=== PATIENT | male | born 1935 | race Caucasian/White ===

== ENCOUNTER 2016-11-16 17:02 | Inpatient (IN) | payer OTHER ==
[~2016-11-16] VITALS: Ht 170.2 cm; Wt 84.8 kg
[2016-11-16] MEDS ORDERED: ACETAMINOPHEN 325 MG TABLET PO PRN (18:00)
[2016-11-16] MEDS ORDERED: PROMETHAZINE 25 MG/ML, 1ML IM PRN (18:00)
[2016-11-16] MEDS ORDERED: PLEASE ENTER HEIGHT AND WEIGHT MC SCH (18:30)
[2016-11-16] MEDS ORDERED: CARV3.12 PO (19:43)
[2016-11-16] MEDS ORDERED: ISOS30TA8 PO (19:43)
[2016-11-16] MEDS ORDERED: PRAZ1CAP2 PO (19:43)
[2016-11-16] MEDS ORDERED: PANT40TA5 PO (19:43)
[2016-11-16] MEDS ORDERED: AMLO2.5T PO (19:43)
[2016-11-16] MEDS ORDERED: NITR0.3T5 SL (19:43)
[2016-11-16] MEDS ORDERED: LISI-170 PO (19:43)
[2016-11-16] MEDS ORDERED: ASPI-496 PO (19:43)
[2016-11-16] MEDS ORDERED: ATOR40TA78 PO (19:43)
[2016-11-16] MEDS ORDERED: CARVEDILOL 3.125 MG TABLET PO PRN (20:30)
[2016-11-16] MEDS ORDERED: PRAZOSIN 1 MG CAPSULE PO PRN (20:30)
[2016-11-16] MEDS: FAMOTIDINE 20 MG/2 ML IVPush SCH (21:07)
[2016-11-16] MEDS: ATORVASTATIN 40 MG TABLET PO SCH (21:07)
[2016-11-16] MEDS: SODIUM CHLORIDE 0.9% 1,000 ML IV SCH (21:09)
[2016-11-17 04:15] LABS: HEMATOCRIT 45.5 % (39.2-51.8)
[2016-11-17 04:24] LABS: ASPARTATE AMINO TRANSFERASE 31 U/L (15-37); BLOOD UREA NITROGEN 22 mg/dL (7-18)
[2016-11-17 04:55] VITALS: BP 144/78
[2016-11-17] MEDS: SODIUM CHLORIDE 0.9% 1,000 ML IV SCH ×2 (05:43→12:22)
[2016-11-17] MEDS ORDERED: predniSONE 50MG TABLET PO ONE ×2 (06:00)
[2016-11-17] MEDS: ISOSORBIDE MONONITRATE ER 30 MG TABLET PO SCH (06:47)
[2016-11-17] MEDS: FAMOTIDINE 20 MG/2 ML IVPush SCH ×2 (09:33→21:03)
[2016-11-17] MEDS: LISINOPRIL 20 MG TABLET PO SCH (09:33)
[2016-11-17] MEDS: ASPIRIN 81 MG TABLET EC PO SCH (09:33)
[2016-11-17] MEDS ORDERED: predniSONE 50MG TABLET PO PRN (12:00)
[2016-11-17] MEDS ORDERED: DIPHENHYDRAMINE 50 MG CAPSULE PO PRN (12:00)
[2016-11-17] MEDS ORDERED: MIDAZOLAM 1 MG/ML, 5ML ONE (14:50)
[2016-11-17] MEDS ORDERED: FENTANYL PF 100 MCG/2ML ONE (14:50)
[2016-11-17] MEDS ORDERED: LIDOCAINE 2%, 20ML ONE (14:51)
[2016-11-17] MEDS ORDERED: HEPARIN 1,000 UNITS/ML, 10ML ONE (14:51)
[2016-11-17] MEDS ORDERED: TICAGRELOR 90 MG TABLET ONE (14:51)
[2016-11-17] MEDS ORDERED: BIVALIRUDIN 250 MG ONE (14:51)
[2016-11-17] MEDS ORDERED: VERAPAMIL 2.5 MG/ML, 2ML ONE (14:51)
[2016-11-17] MEDS ORDERED: SODIUM CHLORIDE 0.9% 1,000 ML IV SCH (16:24)
[2016-11-17] MEDS: ATORVASTATIN 40 MG TABLET PO SCH (21:03)
[2016-11-17] MEDS: TICAGRELOR 90 MG TABLET PO SCH (21:03)
[2016-11-18] MEDS: SODIUM CHLORIDE 0.9% 1,000 ML IV SCH (00:44)
[2016-11-18 03:41] VITALS: BP 136/76
[2016-11-18 04:34] LABS: HEMATOCRIT 41.7 % (39.2-51.8); HEMOGLOBIN 13.9 g/dL (13.7-18.0); WHITE BLOOD COUNT 19.7 x10^3/uL (3.4-10)
[2016-11-18 04:45] LABS: BLOOD UREA NITROGEN 24 mg/dL (7-18)
[2016-11-18] MEDS: ASPIRIN 81 MG TABLET EC PO SCH (07:34)
[2016-11-18] MEDS: TICAGRELOR 90 MG TABLET PO SCH (07:35)
[2016-11-18] MEDS: LISINOPRIL 20 MG TABLET PO SCH (07:35)
[2016-11-18] MEDS ORDERED: FAMOTIDINE 20 MG TABLET PO SCH (09:00)
[2016-11-18] MEDS ORDERED: ASPIRIN 81 MG TABLET EC PO SCH (09:00)
[2016-11-18] MEDS: ISOSORBIDE MONONITRATE ER 30 MG TABLET PO SCH (11:03)
[2016-11-18] MEDS ORDERED: CLOP75TA22 PO (17:51)
== END 2016-11-18 16:02 | disposition left against medical advice (07) | DRG 246 ==
LOC: CCU 17:02
PROVIDERS: ADMIT Hospitalist; ATTEND Hospitalist
PROC: 027135Z Dilation of Coronary Artery, Two Arteries with Two Drug-eluting Intraluminal Devices, Percutaneous Approach (ICD-10-PCS; principal; 2016-11-17)
PROC: 4A023N7 Measurement of Cardiac Sampling and Pressure, Left Heart, Percutaneous Approach (ICD-10-PCS; 2016-11-17)
PROC: B2111ZZ Fluoroscopy of Multiple Coronary Arteries using Low Osmolar Contrast (ICD-10-PCS; 2016-11-17)
PROC: B2151ZZ Fluoroscopy of Left Heart using Low Osmolar Contrast (ICD-10-PCS; 2016-11-17)
DX: I25.110 Atherosclerotic heart disease of native coronary artery with unstable angina pectoris (principal); E43 Unspecified severe protein-calorie malnutrition; R68.83 Chills (without fever); I10 Essential (primary) hypertension; K21.9 Gastro-esophageal reflux disease without esophagitis; D72.829 Elevated white blood cell count, unspecified; E78.5 Hyperlipidemia, unspecified; Z85.51 Personal history of malignant neoplasm of bladder; Z87.891 Personal history of nicotine dependence; Z95.5 Presence of coronary angioplasty implant and graft; Z91.041 Radiographic dye allergy status; T50.8X5A Adverse effect of diagnostic agents, initial encounter
CPT/HCPCS: 36415; 80048; 80053; 82040; 85025; 87081; 93458; 93571; 99156; 99157; C1769; C1894; C9600; J0583; J1644; J2250; J3010; J3490; C1725; C1874; C1887; J7030; J7512; Q9967; S0028